=== PATIENT | male | born 1980 | race Hispanic/Latino ===

== ENCOUNTER 2017-03-27 14:01 | Emergency (ER) | payer OTHER ==
[2017-03-27 14:33] VITALS: BP 127/72
[2017-03-27] MEDS ORDERED: MOTRIN PO ONE (17:36)
[2017-03-27] MEDS ORDERED: ROBAXIN PO ONE (18:00)
[2017-03-27] MEDS ORDERED: ROBAXIN PO SCH (22:00)
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
== END 2017-03-27 18:04 | disposition home or self-care (01) ==
LOC: ED 14:01
DX: S46.912A Strain of unspecified muscle, fascia and tendon at shoulder and upper arm level, left arm, initial encounter (principal); Z88.0 Allergy status to penicillin; Z88.1 Allergy status to other antibiotic agents; Z88.2 Allergy status to sulfonamides; Z87.891 Personal history of nicotine dependence; Z98.890 Other specified postprocedural states; V89.2XXA Person injured in unspecified motor-vehicle accident, traffic, initial encounter; Y93.89 Activity, other specified; Y92.411 Interstate highway as the place of occurrence of the external cause; Y99.8 Other external cause status
CPT/HCPCS: 99282